=== PATIENT | female | born 1980 | race Caucasian/White ===

== ENCOUNTER 2020-01-24 06:34 | Emergency (ER) | payer OTHER, MEDICAID ==
[~2020-01-24] VITALS: Ht 170.2 cm; Wt 61.2 kg
[~2020-01-24 06:34] MED LIST: AUGMENTIN 875875 MG PO; NORCO 5-325 TA1 EACH PO; [UNRECOGNIZED DRUG - OTHER]
[2020-01-24 07:35] VITALS: BP 139/94
--- NOTE | 2020-01-24 17:18 | EKG ---
[place] [address] ELECTROCARDIOGRAM REPORT Name: JANINE ABEBE Room: [facility] ([place], [place])#: [id number] Admission: 01/24/20 Attend Phys: Discharge: 01/24/20 Date of : 84 Date of Service: 01/24/20 0639 Report #: [id number] THIS REPORT FOR: //name// [facility] ED Test Date: 2020-01-24 Test Time: 06:39:23 Pat Name: JANINE ABEBE Department: Room: Gender: Certified Nurse: : 1980 Requested By: Murali Elias Order Number: [id number] MD: Eber Bustos Measurements [employer] Rate: 93 P: 42 CT: 124 QRS: 75 QRSD: 92 T: 26 QT: 353 QTc: 440 Interpretive Statements Sinus rhythm Borderline T abnormalities, inferior leads Baseline wander in lead(s) II,III,aVR,aVL,aVF No previous ECG available for comparison Electronically Signed On 01-24-2020 17:18:34 CDT by Eber Bustos [email or web address] <ELECTRONICALLY SIGNED> By: Eber Bustos MD, FACC 01/24/20 1718 0639 0639 Eber Bustos MD, [facility] /EPI
== END 2020-01-24 07:35 | disposition home or self-care (01) ==
LOC: M.ERS 06:34
DX: R00.2 Palpitations (principal)